=== PATIENT | male | born 1980 | race Two or more races ===

== ENCOUNTER 2024-07-17 18:15 | Emergency (ER) | payer MEDICAID, SELFPAY ==
[2024-07-17 18:37] VITALS: BP 195/128; PULSE 92; RESP 18; TEMP 37.3; O2SAT 97; BMI 34.8
--- NOTE | 2024-07-17 18:50 | EDNOTE_ITS ---
ED Male Genitalurinary RME/HPI General Chief complaint: Urogenital-Male Stated complaint: Blood in urine Time Seen by Provider: 07/17/24 18:21 Arrival date/time: 07/17/24 18:15 RME / HPI RME / HPI Narrative: 43-year-old male with history of hypertension and CHF presents to the ED with complaint of hematuria onset today. Patient states he had an episode of hematuria, and then the next time he urinated it was normal, but then when he u rinated here, he had another episode of hematuria. He reports associated suprapubic pain. He also endorses dysuria. No flank pain. No nausea, vomiting, or diarrhea. Denies any chest pain or shortness of breath. Denies headache. Related Data Home Medications ?Medication ?Instructions ?Recorded ?Confirmed amlodipine 10 mg tablet (Norvasc) 10 mg PO QDAY 05/12/22 Previous Rx's ?Medication ?Instructions ?Recorded nirmatrelvir 300 mg (150 mg See Rx Instructions PO .CO MPLEX 01/12/23 x2)-ritonavir 100 mg tablet,dose #30 tabs pack (Paxlovid) Allergies Allergy/AdvReac Type Severity Reaction Status Date / Time No Known Allergies Allergy Verified 07/17/24 18:19 Review of Systems Review of Systems Narrative Review of Systems: Review of systems negative except as outlined in the HPI. Past Medical History Past Medical History CARDIAC: Positive Hypertension; Negative Congestive Heart Failure RESPIRATORY: Positive Sleep Apnea; Negative Chronic Obstructive Pulmonary Disease (COPD) GASTROINTESTINAL: Positive Obesity GENITOURINARY: Negative Renal Disease ENDOCRINE: Negative Diabetes Mellitus Type 1 or Diabetes Mellitus Type 2 Family History FAMILY HISTORY: Positive Family Cardiac Disorders Social History SMOKING STATUS: Never smoker SUBSTANCE USE: does not use ED Exam Narrative Physical exam: Constitutional: no acute distress, age appropriate, non-toxic Eyes: PERRL, conjunctivae w/o pallor, EOMI HENT: normocephalic, atraumatic. Oral mucosa moist Respiratory Effort: no stridor, effort normal, no retractions Breath sounds: Clear bilaterally; No rales, No rhonchi, No wheezing Cardiovascular: regular rhythm, S1 and S2 normal, no murmur Abdominal: soft; non-distended. Mild suprapubic tenderness. No rebound tenderness or guarding. No McBurney tenderness. Musculoskeletal: no deformities, no swelling, no LE edema Skin: warm, dry; No rash Neurology: alert, oriented X 4. Normal gait. Moves all extremities spontaneously. Psychology: cooperative, normal mood Course Quality Measures none Orders Category Date Time Status CT abdomen pelvis wo con Stat Exams 07/17/24 18:48 Completed CBC Stat Lab 07/17/24 19:01 Completed CMP [Comprehensive Metabolic Panel] Stat Lab 07/17/24 19:01 Completed Lipase Stat Lab 07/17/24 19:01 Completed Urinalysis Stat Lab 07/17/24 19:19 Completed NIFEdipine [Procardia] Med 07/17/24 18:49 Discontinued 10 mg PO X1 ONE Vital Signs Vital signs: Vital Signs Temperature 99.1 F 07/17/24 18:37 Pulse Rate 92 07/17/24 18:37 Respiratory Rate 18 07/17/24 18:37 Blood Pressure 195/128 H 07/17/24 18:37 Pulse Oximetry (%) 97 07/17/24 18:37 Oxygen Delivery Method Room Air 07/17/24 18:37 Urogenital - Male MDM Narrative MDM Narrative:: Patient is a 43-year-old male presents with hematuria. Differential diagnoses include kidney stone, bladder malignancy, kidney malignancy, urinary retention, urinary tract infection. UA does show hematuria, but no evidence of urinary tract infection. Patient not having urinary retention. CT shows no evidence of malignancy and no evidence of kidney or ureteral stone. Hemoglobin is within normal limits. Patient is stable to have hematuria workup done as an outpatient. Does not require a dmission at this time. Patient also encouraged to follow-up with his PCP for recheck of his blood pressure. His blood pressure improved and he does not have any signs of endorgan damage. Strict return to ED precautions given and patient verbalized understanding. Patient data External records reviewed:: [facility] previous records Clinical information provided by:: patient Social determinants that could affect healthcare access:: none Patient has the following chronic illnesses:: Hypertension, CHF How is presenting disease/condition affected by chronic disease/condition?: uneffected by Evaluation data The following diagnostics were reviewed and interpreted by me:: lab results and radiology exam(s) Lab and/or radiology exams considered but not ordered:: None Interpretation Summary: See MDM section Examination: CT abdomen and pelvis without contrast. Coronal 3-D reconstructions. Sagittal 2-D reconstructions. Date and time of exam:July 17, 2024 1916 hrs. Indications: Hematuria with bilateral flank pain today CTDI: vol (mGy): 10.6 DLP: (mGycm): 632 Technique: Axial images of the abdomen have been obtained, 3 mm slice thickness Intravenous contrast material has not been administered. Low dose protocols were performed. One or more of the following dose reduction techniques were used; automated exposure control, adjustment of the mA and/or KV according to patient size, use of iterative reconstruction technique. Findings: No focal liver or splenic lesions Contracted gallbladder No pancreatic or adrenal mass No renal or ureteral calculi 21 mm fat-containing umbilical hernia No hydronephrosis Aorta normal size Normal appendix No bowel obstruction No diverticulitis Contracted urinary bladder No prostatomegaly Mild disc narrowing L5-S1 Impression: No renal or ureteral calculi, no hydronephrosis Normal appendix No bladder mass or bladder calculi Medications / Prescriptions Medications or Prescriptions considered but not ordered:: N/A Medication administrations:: Medication Administration History Discontinued Medications Nifedipine (Nifedipine 10 Mg Capsule) 10 mg PO X1 ONE Stop: 07/17/24 18:50 Last Admin: 07/17/24 18:57 Dose: 10 mg Documented By: OA See above Consultations Consultation(s) initiated? (list below): No Diagnosis Urogenital Male Differential Diagnosis: urinary tract infection, urethritis, prostatitis, acute retention of urine and other (Kidney stone) Most likely diagnosis given after review of the tests above:: Hematuria Admission Indicated Admission indicated?: not indicated Admission Request Was there a request for admission?: No Disposition Plan Disposition Plan: Discharge Discharge Attestation Discharge Attestation: The patient and all family members were given an opportunity to ask questions and understood the discharge instructions. Discharge instructions specifically effects, indications for sooner follow up or return to the emergency department, and the expected course of current diagnosis. Patient condition: Stable Discharge Plan Plan Patient Disposition: HOME (Self Care) Prescriptions/Referrals Prescriptions/Med Rec: No Action amlodipine [Norvasc] 10 mg Tablet 10 mg PO QDAY Paxlovid 300 mg (150 mg x 2)-100 mg tablets,dose pack See Rx Instructions .ROUTE .COMPLEX Qty: 30 0RF Rx Instructions: take TWO 150 mg tablets of nirmatrelvir with ONE 100 mg tablet of ritonavir twice daily for 5 days Referrals: Dev Zurita MD [Primary Care Provider] - In 1 week Problem List Clinical Impression: Hematuria Patient/Caregiver Discharge Instructions Education Materials: ED Hematuria Additional Instructions: Your blood tests and CT scan were reassuring today. Please follow-up with your PCP for further evaluation of hematuria and possible referral to urology. Return to the ED at anytime for new or worsening symptoms. Print Language: Sierra Leonean Stand Alone Forms: Luann Award Info., Patient Portal Info Letter
[2024-07-17 18:57] VITALS: BP 195/128; PULSE 92
[2024-07-17] MEDS: NIFEdipine 10 MG CAPSULE PO (18:57)
[2024-07-17 19:11] LABS: Basophils # (Auto) 0.1 Thou/mm3 (0.0-0.2); Basophils % (Auto) 1 % (0-2.5); Eosinophils # (Auto) 0.1 Thou/mm3 (0.0-0.5); Eosinophils % (Auto) 2 % (0-10); Hematocrit 47.1 % (41.0-53.0); Hemoglobin 16.2 g/dL (13.5-16.0); Immature Granulocytes % (Auto) 0 % (0-0); Immature Granulocytes Auto 0.03 Thou/mm3 (0.00-0.00); Lymphocytes # (Auto) 2.6 Thou/mm3 (1.0-4.8); Lymphocytes % (Auto) 31 % (10-50); Mean Corpuscular HGB Conc 34.4 g/dl (31.0-37.0); Mean Corpuscular Volume 84 fL (80-100); Monocytes # (Auto) 0.5 Thou/mm3 (0.0-0.8); Monocytes % (Auto) 7 % (0-12); Neutrophils # (Auto) 4.9 Thou/mm3 (1.8-7.7); Neutrophils % (Auto) 59 % (37-80); Nucleated Red Blood Cell % 0 /100 WBC (0); Platelet Count 226 Thou/mm3 (140-440); RDW Standard Deviation 40.9 fL (35.1-43.9); Red Blood Count 5.59 Miln/mm3 (4.50-5.90); White Blood Count 8.2 Thou/mm3 (3.8-10.6)
[2024-07-17 19:26] LABS: Alanine Aminotransferase 28 U/L (10-49); Albumin, Serum 4.3 gm/dL (3.5-5.0); Albumin/Globulin Ratio 1.4 (1.2-2.2); Alkaline Phosphatase 91 U/L (46-116); Anion Gap 10 (7-16); Aspartate Amino Transferase 16 U/L (0-34); BUN/Creatinine Ratio 22 Ratio (12-20); Bilirubin,Total 0.3 mg/dL (0.3-1.2); Blood Urea Nitrogen 24 mg/dL (9-23); Calcium 9.6 mg/dL (8.3-10.6); Calcium (Corrected) 9.6 mg/dL (8.5-10.1); Carbon Dioxide 26.8 mMol/L (20.0-31.0); Chloride 101 mMol/L (98-107); Creatinine (Component) 1.1 mg/dL (0.6-1.3); Estimated Creatinine Clearance 87.7 mL/min (>60); Glucose 113 mg/dL (74-106); Lipase 32 U/L (12-53); Osmolality,Calculated 280 (275-295); Potassium 3.8 mMol/L (3.4-5.1); Sodium 138 mMol/L (136-145); Total Protein 7.3 gm/dL (5.7-8.2); eGFR > 60 See Note
[2024-07-17 19:31] LABS: Collection Type, Urine Clean Catch; Squamous Epithelial Cell,Urine 0 /hpf (0-5)
[2024-07-17 20:08] LABS: Bilirubin,Urine Negative (Negative); Blood,Urine 3+ (Negative); Clarity,Urine Turbid (Clear/Hazy); Glucose, Urine Negative (Negative); Ketones,Urine Negative (Negative); Leukocyte Esterase,Urine Negative (Negative); Nitrite,Urine Negative (Negative); Protein,Urine 2+ (Neg - Trace); RBC,Urine 31 /hpf (0-3); Specific Gravity,Urine 1.022 (1.001-1.035); Urobilinogen,Urine Negative mg/dL (0.0-1.0); WBC,Urine < 1 /hpf (0-5)
[2024-07-17 20:09] LABS: Color,Urine Red (Lt Yel-Yel)
== END 2024-07-17 21:27 | disposition home or self-care (01) ==
PROVIDERS: Physician Assistant; Emergency Provider Emergency Medicine; PCP Family Medicine
DX: R31.9 Hematuria, unspecified (principal)
CPT/HCPCS: 36415; 74176; 80053; 81001; 83690; 85025; 99284; A9270

== ENCOUNTER 2024-10-23 00:22 | Observation (INO) | payer MEDICAID, SELFPAY ==
[2024-10-23] VITALS (20 sets, daily range): BP systolic 142–236; BP diastolic 89–152; PULSE 65–83; RESP 18–89; TEMP 36.1–36.9; O2SAT 89–99; BMI 35.4
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
--- NOTE | 2024-10-23 00:30 | EKG_ITS ---
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 : [id number] Requested By: Regan Cunningham Order Number: [id number] Reading MD: Regan Cunningham Measurements Intervals [place] Rate: 64 P: 40 ME: 165 QRS: 222 QRSD: 108 T: 176 QT: 421 QTc: 437 Interpretive Statements SINUS RHYTHM POSSIBLE LEFT ATRIAL ENLARGEMENT RIGHT VENTRICULAR HYPERTROPHY LATERAL MYOCARDIAL INFARCTION , OF INDETERMINATE AGE Compared to ECG 05/11/2022 18:30:51 Right ventricular hypertrophy now present Myocardial infarct finding now present Sinus tachycardia no longer present Left anterior fascicular block no longer present /store/S0/[id number].pdf
[2024-10-23] MEDS: ASPIRIN 81 MG CHEW 324 MG PO (00:47)
[2024-10-23] MEDS: KETOROLAC INJ 30 MG/ML VIAL IVP (00:47)
[2024-10-23] MEDS: MORPHINE SULF INJ 10 MG/ML VIAL 6 MG IVP (00:48)
[2024-10-23 00:58] LABS: Basophils % (Auto) 0 % (0-2.5); Eosinophils # (Auto) 0.2 Thou/mm3 (0.0-0.5); Eosinophils % (Auto) 2 % (0-10); Hematocrit 48.8 % (41.0-53.0); Hemoglobin 16.4 g/dL (13.5-16.0); Immature Granulocytes % (Auto) 1 % (0-0); Immature Granulocytes Auto 0.04 Thou/mm3 (0.00-0.00); Lymphocytes # (Auto) 2.4 Thou/mm3 (1.0-4.8); Lymphocytes % (Auto) 27 % (10-50); Mean Corpuscular HGB Conc 33.6 g/dl (31.0-37.0); Mean Corpuscular Hemoglobin 28.9 pg (25.0-35.0); Mean Corpuscular Volume 86 fL (80-100); Monocytes # (Auto) 0.7 Thou/mm3 (0.0-0.8); Monocytes % (Auto) 8 % (0-12); Neutrophils # (Auto) 5.4 Thou/mm3 (1.8-7.7); Neutrophils % (Auto) 62 % (37-80); Nucleated Red Blood Cell % 0 /100 WBC (0); Platelet Count 222 Thou/mm3 (140-440); RDW Standard Deviation 42.3 fL (35.1-43.9); Red Blood Count 5.68 Miln/mm3 (4.50-5.90); White Blood Count 8.8 Thou/mm3 (3.8-10.6)
[2024-10-23 01:14] LABS: Alanine Aminotransferase 23 U/L (10-49); Albumin, Serum 4.5 gm/dL (3.5-5.0); Albumin/Globulin Ratio 1.7 (1.2-2.2); Alkaline Phosphatase 110 U/L (46-116); Anion Gap 8 (7-16); Aspartate Amino Transferase 19 U/L (0-34); BUN/Creatinine Ratio 22 Ratio (12-20); Bilirubin,Total 0.5 mg/dL (0.3-1.2); Blood Urea Nitrogen 33 mg/dL (9-23); Calcium 9.2 mg/dL (8.3-10.6); Calcium (Corrected) 9.2 mg/dL (8.5-10.1); Carbon Dioxide 31.2 mMol/L (20.0-31.0); Chloride 104 mMol/L (98-107); Creatinine (Component) 1.5 mg/dL (0.6-1.3); Estimated Creatinine Clearance 62.3 mL/min (>60); Globulin 2.7 gm/dL (2.3-3.5); Glucose 125 mg/dL (74-106); Osmolality,Calculated 293 (275-295); Potassium 3.8 mMol/L (3.4-5.1); Sodium 143 mMol/L (136-145); Total Protein 7.2 gm/dL (5.7-8.2); eGFR 59 See Note
[2024-10-23 01:20] LABS: Troponin I 0.392 ng/mL (0.0-0.045)
[2024-10-23] MEDS: METOPROLOL TARTRATE 25 MG TABLET PO (01:32)
[2024-10-23] MEDS: cloNIDine HCL 0.1 MG TABLET 0.2 MG PO (01:32)
[2024-10-23 01:35] LABS: D-Dimer 1040 ng/mL (<600)
[2024-10-23] MEDS: CLOPIDOGREL BISULFATE 75 MG TABLET 300 MG PO (01:36)
[2024-10-23 02:18] LABS: B-Type Natriuretic Peptide 76 pg/mL (0-100)
--- NOTE | 2024-10-23 02:43 | XR_ITS ---
Examination: AP chest single view TECHNIQUE: AP portable upright chest single view Date and time: October 23, 2024 0300 hours Comparison May 11, 2022 INDICATION: Shortness of breath today. FINDINGS: Moderate to large retrocardiac contour Moderate vascular congestion Suspicious for early septal edema at the lung bases No lobar pneumonia Unipolar ventricular cardiac leads satisfactory position IMPRESSION: Mild heart failure
[2024-10-23] MEDS: hydrALAZINE INJ 20 MG/ML VIAL 10 MG IVP ×2 (02:51→23:58)
[2024-10-23] MEDS: PANTOPRAZOLE INJ 40 MG VIAL IVP (04:36)
--- NOTE | 2024-10-23 04:42 | PC.NURSE ---
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
[2024-10-23 04:58] LABS: Glucose Estimated Average 126 mg/dL (80-131)
[2024-10-23 05:13] LABS: Anion Gap 7 (7-16); BUN/Creatinine Ratio 23 Ratio (12-20); Blood Urea Nitrogen 30 mg/dL (9-23); Calcium 8.7 mg/dL (8.3-10.6); Carbon Dioxide 29.3 mMol/L (20.0-31.0); Chloride 108 mMol/L (98-107); Creatinine (Component) 1.3 mg/dL (0.6-1.3); Estimated Creatinine Clearance 71.9 mL/min (>60); Glucose 129 mg/dL (74-106); Magnesium 2.1 mg/dL (1.6-2.6); Osmolality,Calculated 295 (275-295); Sodium 144 mMol/L (136-145); eGFR > 60 See Note
[2024-10-23 05:14] LABS: Troponin I 0.382 ng/mL (0.0-0.045)
[2024-10-23] MEDS: HEPARIN SOD INJ 5000 UNIT/ML VIAL SC ×3 (06:30→21:07)
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
--- NOTE | 2024-10-23 07:51 | ECHO_ITS ---
Transthoracic Echo Report Ht (in): 63 Wt (lb): 203 Exam Location: Echo Lab Status: Inpatient Child Development Consultant: Clarissa Donovan Indications: Procedure Performed: BP: 124 / 75 HR: 66 Technical Quality: Fair MEASUREMENTS (Male / Female) Normal Values 2D ECHO LV Diastolic Diameter PLAX 5.9 cm 4.2 - 5.9 / 3.9 - 5.3 cm LV Systolic Diameter PLAX 4.2 cm IVS Diastolic Thickness 1.3 cm 0.6 - 1.0 / 0.6 - 0.9 cm LVPW Diastolic Thickness 1.3 cm 0.6 - 1.0 / 0.6 - 0.9 cm LV Relative Wall Thickness 0.4 LVOT Diameter 2.5 cm LV Ejection Fraction MOD 4C 43.4 % LV Cardiac Index MOD 4C 2150.4 cm?/min?m? LV Ejection Fraction 4C AL 47.0 % LV Cardiac Index 4C AL 2530.8 cm?/min?m? LV Ejection Fraction MOD 2C 54.1 % LV Cardiac Index MOD 2C 3303.9 cm?/min?m? LV Ejection Fraction 2C AL 57.4 % LV Cardiac Index 2C AL 3637.2 cm?/min?m? LA Volume Index 25.6 cm?/m? 16 - 28 cm?/m? M-MODE Aortic Root Diameter MM 2.4 cm LA Systolic Diameter MM 4.3 cm LA Ao Ratio MM 1.8 AV Cusp Separation MM 2.0 cm DOPPLER AV Peak Velocity 181.5 cm/s AV Peak Gradient 13.2 mmHg AV Mean Gradient 7.0 mmHg AV Velocity Time Integral 35.3 cm LVOT Peak Velocity 103.0 cm/s LVOT Peak Gradient 4.2 mmHg LVOT Velocity Time Integral 19.9 cm LVOT Cardiac Index 3121.3 cm?/min?m? AV Area Cont Eq vti 2.8 cm? AV Area Cont Eq pk 2.8 cm? MV Area PHT 3.8 cm? Mitral E Point Velocity 71.8 cm/s Mitral A Point Velocity 61.6 cm/s Mitral E to A Ratio 1.2 LV E' Lateral Velocity 5.3 cm/s Mitral E to LV E' Lateral Ratio 13.5 LV E' Septal Velocity 4.0 cm/s Mitral E to LV E' Septal Ratio 17.8 PV Peak Velocity 96.1 cm/s PV Peak Gradient 3.7 mmHg RVOT Peak Velocity 78.3 cm/s FINDINGS Left Ventricle The left ventricular cavity size, mild concentric LVH (wall thickness 13 mm with normal systolic and diastolic function are normal with no regional wall motion abnormalities present. Left ventricle ejection fraction approximately 50 to 55%. Right Ventricle The right ventricle is normal in size and systolic function. Left Atrium The left atrium is normal by two-dimensional, color flow and Doppler imaging with no structural abnormalities, no thrombus formation present. Right Atrium The right atrium is normal by two-dimensional imaging, color flow and Doppler imaging with no structural abnormalities, no thrombus formation present. Atrial Septum The interatrial septum appears normal with no evidence of a shunt. Aorta The aorta is normal by two-dimensional, color flow and Doppler interrogation. Mitral Valve The mitral valve is normal by two-dimensional, color flow and Doppler interrogation. Trace to mild mitral regurgitation. Aortic Valve Trace aortic valve regurgitation. Tricuspid Valve The tricuspid valve is normal by two-dimensional, color flow and Doppler interrogation. There is no significant tricuspid valve regurgitation. Pulmonic Valve The pulmonic valve is not well visualized. There is no significant pulmonic valve regurgitation. Vessels The pulmonary artery appears normal. The inferior vena cava pulmonary and hepatic veins appear normal. Pericardium The pericardium is normal by two-dimensional imaging. There is no significant pericardial effusion. CONCLUSIONS The transthoracic study is normal by two-dimensional, color flow imaging and Doppler interrogation. Normal left ventricular size and function. Approximate ejection fraction is 50-55%. RV is normal in size and systolic function. Trace to mild mitral and tricuspid regurgitation insignificant. Elmira Pittman (Electronically Signed) Final Date: 24 Oct 2024 19:40
[2024-10-23] MEDS: ISOSORBIDE ER MONONITRATE 30 MG TABCR 60 MG PO (08:22)
[2024-10-23] MEDS: Lisinopril 2.5 MG TABLET 10 MG PO (08:22)
[2024-10-23] MEDS: carVEDILOL 12.5 MG TABLET PO ×2 (08:22→16:55)
[2024-10-23] MEDS: ASPIRIN EC 81 MG TABEC PO (08:23)
[2024-10-23] MEDS: CLOPIDOGREL BISULFATE 75 MG TABLET PO (08:23)
[2024-10-23] MEDS: FENOFIBRATE 145 MG TABLET (NON-FORMULARY) PO (08:31)
--- NOTE | 2024-10-23 09:00 | EKG_ITS ---
[facility] Test Date: 2024-10-23 Pat Name: SANTOS PHILLIPS Department: Room: - Gender: Male Importer Exporter: RUSSEL : 1980 Requested By: Nancy Dodd Order Number: [id number] Reading MD: Nancy Dodd Measurements Intervals [place] Rate: 65 P: 44 MS: 171 QRS: 242 QRSD: 102 T: 216 QT: 430 QTc: 447 Interpretive Statements SINUS RHYTHM POSSIBLE LEFT ATRIAL ENLARGEMENT INDETERMINATE AXIS S1-S2-S3 PATTERN, CONSISTENT WITH PULMONARY DISEASE, RVH, OR NORMAL VARIANT LATERAL MYOCARDIAL INFARCTION , PROBABLY RECENT ACUTE NV Compared to ECG 10/23/2024 09:03:03 Indeterminate axis now present Myocardial infarct finding still present /store/S0/[id number].pdf
--- NOTE | 2024-10-23 11:24 | PC.SS ---
SS follow up note; Patient will discharge home tomorrow.
--- NOTE | 2024-10-23 11:42 | PC.SS ---
Patient Tyrese Mayen is a 43 Year old male admitted for NSTEMI. SS met with patient at bedside to discuss discharge plan and verify demographic information. Patient reports he lives at home with family. Prior to admission patient did not utilize any source of DME to assist with ambulation. Patient is able to complete all ADL's independently. Choice of pharmacy is [facility]. Surrogate decision maker is his , Mey Gracia [phone]. At time of discharge patient will discharge home. Family will provide transportation. Next of kin: , Mey Gracia Discharge plan: Home PCP: Dev Zurita
--- NOTE | 2024-10-23 11:44 | ESPR_ITS ---
<Statement entered by Geraldine Pham MD - 10/24/24 07:53> 43-year-old male with history of hypertension, hyperlipidemia and type 2 diabetes mellitus and a history of heart failure with reduced EF with a EF 25- 30% status post AICD/pacemaker who presented with hypertensive emergency and noted to have slight elevation in troponin with a peak at 0.392. As a result, patient was subsequently admitted and started on aggressive hypertensive medications including Coreg 12.5 twice daily, isosorbide 60 mg daily and lisinopril 10 mg daily. Per cardiology, recommended doing an echocardiogram and monitoring the patient. Currently, patient denies any chest pain, does not appear to be in fluid overload state and awaiting echocardiogram and further cardiology recommendation. Anticipate discharge in the next 24 hours.I reviewed above note and agree with findings and plans. I have also personally examined the patient with medicine team and went over assessment and plan with medical team including internal sales engineer and resident physician. Documentation for date of: 10/23/24 Subjective Subjective Interval history: Patient was seen and examined at bedside this morning. No acute overnight events. Patient's troponins down trended and patient does not have any chest pain at this time. Patient's chest x-ray that show heart failure. Patient's blood pressure was 160s over 80s this morning before getting medications. Otherwise labs this morning were fairly unremarkable. Exam Vital Signs Temp Pulse Resp BP Pulse Ox O2 Del Method O2 Flow Rate 97.4 F 68 20 172/97 H 96 Room Air 2 10/23/24 08:00 10/23/24 08:22 10/23/24 08:00 10/23/24 08:22 10/23/24 08:00 10/23/24 08:00 10/23/24 07:13 Narrative Exam General: A/O x3, no acute distress Eyes: PERRL, EOMI. Anicteric, vision grossly intact. Ears: No ear pain, no ear discharge, Hearing grossly intact. Nose: No nasal discharge. Mouth/Throat: Moist mucous membranes, no redness, no lesions. Neck: Neck supple, non-tender, no cervical lymphadenopathy. Lungs: Clear KURT to auscultation and percussion, No accessory muscle use. Cardio: Normal S1/S2, regular rhythm, no murmurs, no JVD Abdomen: Soft, non-tender, no palpable masses, peristalsis present, no guarding or rebound. Extremities: Symmetrical, no significant deformities, no peripheral edema , non-tender, peripheral pulses presents. Skin: No rashes, no lesions, warm to touch. Neuro: No focal neurological deficits. motor and sensory intact Psych: Cooperative, appropriate mood and effect. Objective Labs 10/23/24 00:35 10/23/24 04:29 Labs: Laboratory Results - last 24 hr 10/23/24 10/23/24 00:35 04:29 WBC 8.8 RBC 5.68 Hgb 16.4 H Hct 48.8 MCV 86 MCH 28.9 MCHC 33.6 RDW Std Deviation 42.3 Plt Count 222 Neut % (Auto) 62 Lymph % (Auto) 27 Ramsey % (Auto) 8 Eos % (Auto) 2 Baso % (Auto) 0 Neut # (Auto) 5.4 Lymph # (Auto) 2.4 Ramsey # (Auto) 0.7 Eos # (Auto) 0.2 Baso # (Auto) 0.0 Immature Gran # (Auto) 0.04 H Absolute Nucleated RBC 0.00 Immature Gran % 1 H Nucleated RBC % 0 D-Dimer 1040 H Sodium 143 144 Potassium 3.8 4.0 Chloride 104 108 H Carbon Dioxide 31.2 H 29.3 Anion Gap 8 7 BUN 33 H 30 H Creatinine 1.5 H 1.3 Estim Creat Clear Calc 62.3 71.9 eGFR 59 L > 60 BUN/Creatinine Ratio 22 H 23 H Glucose [address] Glu mg/dL 126 Hemoglobin A1c 6.0 Calculated Osmolality 293 295 Calcium 9.2 8.7 Corrected Calcium 9.2 Phosphorus 4.0 Magnesium 2.0 2.1 Total Bilirubin 0.5 AST 19 ALT 23 Alkaline Phosphatase 110 Troponin I 0.392 H* 0.382 H* B-Natriuretic Peptide 76 Total Protein 7.2 Albumin 4.5 Globulin 2.7 Albumin/Globulin Ratio 1.7 Quality Measures Quality Measures none Assessment & Plan Assessment Current Active Medications: Generic Name Dose Route Start Last Admin Trade Name Freq PRN Reason Stop Dose Admin Acetaminophen 650 mg 10/23/24 03:44 Acetaminophen 325 Mg Tablet PO 11/22/24 03:43 Q6H PRN Fever >100.3 or pain Aspirin 81 mg 10/23/24 09:00 10/23/24 08:23 Aspirin Ec 81 Mg Tabec PO 11/22/24 08:59 81 mg DAILY JUSTIN Administration Atorvastatin Calcium 40 mg 10/23/24 21:00 Atorvastatin Calcium 20 Mg Tablet PO 11/22/24 20:59 HS [facility] Carvedilol 12.5 mg 10/23/24 08:00 10/23/24 08:22 Carvedilol 12.5 Mg Tablet PO 11/22/24 07:59 12.5 mg BIDWM JUSTIN Administration Clopidogrel Bisulfate 75 mg 10/23/24 09:00 10/23/24 08:23 Clopidogrel Bisulfate 75 Mg Tablet PO 11/22/24 08:59 75 mg DAILY JUSTIN Administration Dextrose 25 ml 10/23/24 04:42 Dextrose 50%-Water Inj 50 Ml Syringe IV 11/22/24 04:41 Q15MIN PRN BG 50-70 responsive npo pt Dextrose 50 ml 10/23/24 04:42 Dextrose 50%-Water Inj 50 Ml Syringe IV 11/22/24 04:41 Q15MIN PRN BG <50 OR BG <70 & pt unresponsive Fenofibrate 145 mg 10/23/24 09:00 10/23/24 08:31 Fenofibrate 145 Mg Tablet (Non-Formulary) PO 11/22/24 08:59 145 mg QDAY JUSTIN Administration Heparin Sodium (Porcine) 5,000 unit 10/23/24 06:00 10/23/24 06:30 Heparin Sod Inj 5000 Unit/Ml Vial SC 11/06/24 05:59 5,000 unit Q8HR JUSTIN Administration Insulin Human Lispro 0 unit 10/23/24 07:30 10/23/24 11:22 Insulin Lispro (Admelog) 1 Unit/0.01 Ml Unit SC 11/22/24 07:29 Not Given AC [facility] Protocol Isosorbide Mononitrate 60 mg 10/23/24 09:00 10/23/24 08:22 Isosorbide Er Mononitrate 30 Mg Tabcr PO 11/22/24 08:59 60 mg QDAY JUSTIN Administration Lisinopril 10 mg 10/23/24 09:00 10/23/24 08:22 Lisinopril 2.5 Mg Tablet PO 11/22/24 08:59 10 mg QDAY JUSTIN Administration Ondansetron HCl 4 mg 10/23/24 03:47 Ondansetron Inj 2 Mg/Ml Inj 2 Ml IVP 11/22/24 03:46 Q6H PRN NAUSEA OR VOMITING Protocol Sennosides 1 tab 10/23/24 03:47 Senna Tablet PO 11/22/24 03:46 QDAY PRN constipation Protocol Plan 43-year-old male with past medical history of hypertension, HFrEF (EF 25 to 30%) s/p pacemaker, and DM2 was admitted to the hospital on 10/23/2024 due to hypertensive emergency and NSTEMI likely type II. #Hypertensive emergency #NSTEMI likely type II #Hx of HFrEF (EF 25 to 30%) s/p pacemaker #Hx of hypertension Patient came in with chest pain which was nonradiating and 8 out of 10 and initially EKG did not show any ST changes. Patient's initial troponins were 0.392 and down trended to 0.382. Initially patient also came in with a blood pressure of 236/152 and this morning was 160s over 80s. Today patient did not have any chest pain and repeat EKG did not show any ST changes Plan: Will continue with aspirin and Plavix Will resume patient's home medications Coreg 12.5 twice daily, fenofibrate 145 mg daily, atorvastatin 40 mg at bedtime, isosorbide 60 mg daily, and lisinopril 10 mg daily Echo ordered Cardiology consulted, appreciate commendations #Hx of DM2 Patient's A1c 6% today Plan: ISS Hypoglycemia protocol ordered Will continue to monitor Disposition: Pending echo. Diet: cardiac GI prophylaxis: protonix DVT prophylaxis: heparin subcu Code: Full Case disclosed with Attending Dr. Vero Clarke PGY1 Disclaimer: Even though this this note was dictated by speech recognition and even though it was carefully revised there may still be minor errors in caustic operator due to voice recognition software.
[2024-10-23 16:15] LABS: Base Excess 2 (-3-3); HCO3 28 mEq/L (20-26); Inspired Oxygen, FIO2 21 %; O2 Saturation 98 % (91-98); PCO2 49 mmHg (32.0-48.0); PO2 90 mmHg (83-108); pH, Arterial 7.36 (7.35-7.45)
[2024-10-23 16:23] LABS: Allen Test Performed/OK; Puncture Site Left Radial
[2024-10-23] MEDS: NITROGLYCERIN 0.4 MG SUBL BTL #25 SL (18:20)
--- NOTE | 2024-10-23 18:26 | PC.ADMIT ---
1819: PATIENT C/O CHEST PRESSURE TO LEFT SIDE 07/09. BP 146/92 HR 65. NITRO 1 TAB GIVEN ORDERED. 1824: PATIENT STATES HIS CHEST PAIN RELIVED WITH ONE NITRO BP 133/83 HR 65. WILL CONTINUE TO MONITOR.
[2024-10-23] MEDS: ATORVASTATIN CALCIUM 20 MG TABLET 40 MG PO (21:07)
[2024-10-24] VITALS (13 sets, daily range): BP systolic 106–164; BP diastolic 65–103; PULSE 57–89; RESP 16–27; TEMP 36.2–36.8; O2SAT 93–99; BMI 36.5
[2024-10-24] MEDS: hydrALAZINE INJ 20 MG/ML VIAL 10 MG IVP (04:30)
[2024-10-24] MEDS: HEPARIN SOD INJ 5000 UNIT/ML VIAL SC ×2 (05:44→14:00)
[2024-10-24 06:11] LABS: Basophils % (Auto) 1 % (0-2.5); Eosinophils # (Auto) 0.2 Thou/mm3 (0.0-0.5); Eosinophils % (Auto) 3 % (0-10); Hematocrit 48.9 % (41.0-53.0); Hemoglobin 16.4 g/dL (13.5-16.0); Immature Granulocytes % (Auto) 0 % (0-0); Immature Granulocytes Auto 0.02 Thou/mm3 (0.00-0.00); Lymphocytes # (Auto) 1.9 Thou/mm3 (1.0-4.8); Lymphocytes % (Auto) 30 % (10-50); Mean Corpuscular HGB Conc 33.5 g/dl (31.0-37.0); Mean Corpuscular Hemoglobin 29.4 pg (25.0-35.0); Mean Corpuscular Volume 88 fL (80-100); Monocytes # (Auto) 0.5 Thou/mm3 (0.0-0.8); Monocytes % (Auto) 8 % (0-12); Neutrophils # (Auto) 3.8 Thou/mm3 (1.8-7.7); Neutrophils % (Auto) 59 % (37-80); Nucleated Red Blood Cell % 0 /100 WBC (0); Platelet Count 173 Thou/mm3 (140-440); RDW Standard Deviation 44.5 fL (35.1-43.9); Red Blood Count 5.58 Miln/mm3 (4.50-5.90); White Blood Count 6.5 Thou/mm3 (3.8-10.6)
[2024-10-24 06:43] LABS: Alanine Aminotransferase 20 U/L (10-49); Albumin, Serum 4.1 gm/dL (3.5-5.0); Albumin/Globulin Ratio 1.6 (1.2-2.2); Alkaline Phosphatase 70 U/L (46-116); Anion Gap 11 (7-16); Aspartate Amino Transferase 19 U/L (0-34); BUN/Creatinine Ratio 19 Ratio (12-20); Bilirubin,Total 0.4 mg/dL (0.3-1.2); Blood Urea Nitrogen 23 mg/dL (9-23); Calcium 8.7 mg/dL (8.3-10.6); Calcium (Corrected) 8.7 mg/dL (8.5-10.1); Carbon Dioxide 26.5 mMol/L (20.0-31.0); Chloride 105 mMol/L (98-107); Creatinine (Component) 1.2 mg/dL (0.6-1.3); Estimated Creatinine Clearance 79.5 mL/min (>60); Globulin 2.6 gm/dL (2.3-3.5); Glucose 98 mg/dL (74-106); Magnesium 2.1 mg/dL (1.6-2.6); Osmolality,Calculated 286 (275-295); Potassium 4.2 mMol/L (3.4-5.1); Sodium 142 mMol/L (136-145); Total Protein 6.7 gm/dL (5.7-8.2); eGFR > 60 See Note
[2024-10-24] MEDS: ISOSORBIDE ER MONONITRATE 30 MG TABCR 60 MG PO (08:27)
[2024-10-24] MEDS: CLOPIDOGREL BISULFATE 75 MG TABLET PO (08:27)
[2024-10-24] MEDS: ASPIRIN EC 81 MG TABEC PO (08:27)
[2024-10-24] MEDS: cloNIDine HCL 0.1 MG TABLET PO (08:28)
[2024-10-24] MEDS: Lisinopril 2.5 MG TABLET 10 MG PO (08:28)
[2024-10-24] MEDS: carVEDILOL 12.5 MG TABLET PO ×2 (08:28→16:51)
[2024-10-24] MEDS: FENOFIBRATE 145 MG TABLET (NON-FORMULARY) PO (08:38)
--- NOTE | 2024-10-24 10:34 | PC.SS ---
Addendum entered by THADDEUS Burkett 10/24/24 15:40: SS update: bedside RN-Kristina was updated on current status. Pending delivery of DME with [facility]. They are aware patient is ready for d/c today. Addendum entered by THADDEUS Burkett 10/24/24 14:37: SS follow up: contacted [facility] for update on DME delivery, staff informs that the DME is pending insurance authorization before delivery. Contact working on this order is Connie. Addendum entered by THADDEUS Burkett 10/24/24 13:43: SS update: sent DME order for oxygen via [facility]. Original Note: SS update: plan is for patient to d/c home today.
--- NOTE | 2024-10-24 10:42 | ESDS_ITS ---
<Statement entered by Geradline Pham MD - 10/31/24 15:45> I reviewed above note and agree with findings and plans. I have also personally examined the patient with medicine team and went over assessment and plan with medical team including digital media intern and resident physician. Planned Discharge Date 10/24/24 DS: Providers Provider Date of admission: 10/23/24 03:44 Primary care physician: Dev Zurita MD Admitting Provider: Meek Alas MD Attending Provider on Admission: Geraldine Pham MD Consults: 10/23/24 05:32 Consult to Cardiology Routine Comment: NSTEMI Consulting Provider: Derek Rain Attending Provider on DC: Beverly Shirley MD Discharging Provider: Beverly Shirley MD DS: Diagnosis Problem List Completed Was Problem List Reviewed/Reconciled?: Yes Hospital Course Hospital Course Hospital course: Mr. Samuels is a 43-year-old male with past medical history signficant for hypertension, HFrEF (EF 25 to 30%) s/p pacemaker, and DM2 came with nonradiating 8/10 chest pain and was admitted to the hospital on 10/23/2024 for hypertensive emergency and NSTEMI. Patient's troponins peaked at 0.392 and EKG didn't show any ST changes. Patient's intial BP was 236/152 and now over hospital course has been in 130s/80s. Throughout hospital stay, patient was started on his home Asa, Plavix, Coreg, Fenofibrate, Atorvastatin, Isosorbide, and Lisinopril. Echocardiogram was ordered and showed much improvement in his heart failure, currently 50-55%. Patient's stay also complicated with periods of low O2 saturation levels into the 70s. Patient was advised to follow up with PCP for sleep study and CPAP machine for possible diagnoses of OHS/ALBARO. Pt seen and examined at bedside. Pt denies any complaints. Pt is medically cleared to be discharged today with the following instructions: Please follow-up with primary care physician within 1 week upon discharge Please talk to your primary care physician regarding cpap machine referral Please follow-up with your stamp pad maker within 1 to 2 weeks upon discharge Please follow-up with your stamp pad maker for possible echocardiogram as outpatient if there is no recent echo in the past 6 months. Please continue taking all home medications as prescribed Please come back to the ED if symptoms persist or worsen Por favor, consulte con salgado m?dico de cabecera dentro de la semana posterior al raven. Por favor, consulte con salgado m?dico de cabecera sobre la derivaci?n a rhona m?quina CPAP. Por favor, consulte con salgado cardi?logo dentro de la semana posterior al raven. Por favor, consulte con salgado cardi?logo para rhona posible ecocardiograf?a ramin paciente ambulatorio si no se arnold realizado rhona ecocardiograf?a reciente en los ?ltimos 6 meses. Por favor, contin?e tomando todos los medicamentos recetados en casa. Por favor, regrese a urgencias si los s?ntomas persisten o empeoran. Hospital discharge diagnoses treated during hospital stay: #Hypertensive emergency #NSTEMI likely type II #Hx of HFrEF (EF 25 to 30%) s/p pacemaker #Hx of hypertension #Hx of DM2 Patient's plan and care discussed with my attending, Dr. Vero Shirley MD PGY-2 Status at Discharge Cognitive/behavioral status at discharge: stable Time Spent with Patient Time attestation: Total time spent providing and/or coordinating discharge services: 35 Time spent: Greater than 30 minutes Exam Vital Signs Temp Pulse Resp BP Pulse Ox O2 Del Method O2 Flow Rate 97.9 F 72 16 164/93 H 96 Nasal Cannula 2 10/24/24 08:00 10/24/24 08:28 10/24/24 08:00 10/24/24 08:28 10/24/24 08:00 10/24/24 08:00 10/24/24 08:00 Narrative Exam General Appearance: Pt in NAD laying comfortably in bed. Conversational, well- nourished and developed. HEENT: NC/AT, no scleral icterus, no conjunctival pallor, MMM Lungs: CTAB, no wheezes or crackles appreciated CVS: RRR, S1/S2 heard, no murmurs or rubs appreciated ABD: Soft, non-tender, obese, non-distended, BS + in all 4 quadrants EXT: no deformity/edema/lesions/cyanosis/clubbing, radial pulses 2+ BL, DP pulses 2 + BL SKIN: Skin exam normal without any rashes. Neuro: A&O x 3. No gross neurological deficits. Motor and sensory grossly intact in B/L UL and LL. Psych: Appropriate mood and affect Discharge Plan Plan Patient Disposition: HOME (Self Care) Care Plan Goals: Please follow-up with primary care physician within 1 week upon discharge Please follow-up with your stamp pad maker within 1 to 2 weeks upon discharge Please follow-up with your stamp pad maker for possible echocardiogram as outpatient if there is no recent echo in the past 6 months. Please continue taking all home medications as prescribed Please come back to the ED if symptoms persist or worsen Prescriptions/Referrals Prescriptions/Med Rec: Continued clonidine HCl 0.1 mg tablet 0.1 mg PO Q8H isosorbide mononitrate 60 mg tablet extended release 24 hr 60 mg PO QDAY Patient Comments: TAKE 1 TABLET BY MOUTH EVERY DAY IN THE MORNING FOR 3 MONTHS Rybelsus 7 mg tablet 7 mg PO QDAY Patient Comments: TAKE 1 TABLET BY MOUTH EVERY DAY fenofibrate nanocrystallized 145 mg tablet 145 mg PO QDAY Patient Comments: TAKE 1 TABLET BY MOUTH EVERY DAY rosuvastatin 20 mg tablet 20 mg PO QDAY Patient Comments: TAKE 1 TABLET BY MOUTH EVERY DAY carvedilol 12.5 mg tablet 12.5 mg PO BID Patient Comments: TAKE 1 TABLET BY MOUTH TWICE A DAY ranolazine 500 mg tablet extended release 12 hr 500 mg PO BID Patient Comments: TAKE 1 TABLET BY MOUTH TWICE A DAY clopidogrel 75 mg tablet 75 mg PO QDAY Patient Comments: TAKE 1 TABLET BY MOUTH EVERY DAY FOR 90 DAYS ergocalciferol (vitamin D2) 1,250 mcg (50,000 unit) capsule 50,000 unit PO QWEEK Patient Comments: TAKE 1 CAPSULE BY MOUTH EVERY WEEK lisinopril 10 mg tablet 10 mg PO QDAY Patient Comments: PLEASE SEE ATTACHED FOR DETAILED DIRECTIONS metformin 500 mg tablet 1,000 mg PO BIDWMEAL Patient Comments: TAKE 2 TABLETS BY MOUTH TWICE A DAY WITH MEALS aspirin 81 mg tablet,delayed release (DR/EC) 81 mg PO QDAY Patient Comments: TAKE 1 TABLET BY MOUTH EVERY DAY FOR 90 DAYS Referrals: Dev Zurita MD [Primary Care Provider] - Patient/Caregiver Discharge Instructions Discharge Activity: activity as tolerated and resume usual activities Other Discharge Activity Instructions:: Please follow-up with primary care physician within 1 week upon discharge Please talk to your primary care physician regarding cpap machine referral Please follow-up with your stamp pad maker within 1 to 2 weeks upon discharge Please follow-up with your stamp pad maker for possible echocardiogram as outpatient if there is no recent echo in the past 6 months. Please continue taking all home medications as prescribed Please come back to the ED if symptoms persist or worsen Por favor, consulte con salgado m?dico de cabecera dentro de la semana posterior al raven. Por favor, consulte con salgado m?dico de cabecera sobre la derivaci?n a rhona m?quina CPAP. Por favor, consulte con salgado cardi?logo dentro de la semana posterior al raven. Por favor, consulte con salgado cardi?logo para rhona posible ecocardiograf?a ramin paciente ambulatorio si no se arnold realizado rhona ecocardiograf?a reciente en los ?ltimos 6 meses. Por favor, contin?e tomando todos los medicamentos recetados en casa. Por favor, regrese a urgencias si los s?ntomas persisten o empeoran. Education Materials: Controlling High Blood Pressure, Hypertension Dc Print Language: Lithuanian Stand Alone Forms: Luann Award Info., Patient Portal Info Letter, Work/Release Restrictions Discharge Order Discharge Orders: Discharge (Routine); Ordered 10/24/24 Ordered By: Beverly Shirley Quality Discharge Quality Measures VTE prophylaxis
--- NOTE | 2024-10-24 13:07 | PC.NURSE ---
PATIENT'S OXYGEN SATURATION AT REST 88% ON ROOM AIR. PLACE ON ONE LITER, O2 SATURATION CAME UP TO 94%.
--- NOTE | 2024-10-24 19:45 | PC.NURSE ---
PT AAO X4, PT SPEAKS JAPANESE,FAMILY AT BEDSIDE. OXYGEN EQUIPMENT DELIVERED AT BEDSIDE. DISCHARGE INSTRUCTIONS GIVEN AND PT VERBALIZED UNDERSTANDING. PT SIGNED PAPERWORK.
--- NOTE | 2024-10-24 19:59 | PC.NURSE ---
PT ESCORTED TO PRIVATE CAR ON W/C WITH O2 ON AND BELONGINGS.
== END 2024-10-24 19:59 | disposition home or self-care (01) ==
LOC: SERX 03:39 → SERHOLD 04:10 → S2NX 04:59
PROVIDERS: Student in an Organized Health Care Education/Training Program; Admitting Provider Internal Medicine; Emergency Provider Emergency Medicine; PCP Family Medicine; Visit Provider Internal Medicine
DX: I21.4 Non-ST elevation (NSTEMI) myocardial infarction (principal); I16.1 Hypertensive emergency; I1A.0 Resistant hypertension; I50.22 Chronic systolic (congestive) heart failure; N17.9 Acute kidney failure, unspecified; Z82.49 Family history of ischemic heart disease and other diseases of the circulatory system; Z95.0 Presence of cardiac pacemaker; Z88.8 Allergy status to other drugs, medicaments and biological substances; Z88.6 Allergy status to analgesic agent; I11.0 Hypertensive heart disease with heart failure; G47.30 Sleep apnea, unspecified; E66.811 Obesity, class 1; I25.2 Old myocardial infarction; E11.9 Type 2 diabetes mellitus without complications
CPT/HCPCS: 36415; 36600; 71045; 80048; 80053; 82803; 83036; 83735; 83880; 84100; 84484; 85025; 85379; 93005; 93306; 96372; 96374; 96375; 96376; 99291; G0378; J0360; J1644; J1885; J2270; J2470; A9270